=== PATIENT | female | born 1990 | race Caucasian/White ===

== ENCOUNTER 2021-11-12 07:31 | Emergency (ER) | payer OTHER ==
[~2021-11-12] VITALS: Ht 152.4 cm; Wt 54.4 kg
== END 2021-11-12 12:40 | disposition home or self-care (01) ==
LOC: ER 07:31
DX: S00.93XA Contusion of unspecified part of head, initial encounter (principal); W18.30XA Fall on same level, unspecified, initial encounter; Y93.9 Activity, unspecified; Y92.9 Unspecified place or not applicable